=== PATIENT | female | born 1990 | race Caucasian/White ===

== ENCOUNTER 2019-08-27 16:37 | Inpatient (IN) | payer MEDICAID, MEDICARE ==
[~2019-08-27] VITALS: Ht 157.5 cm; Wt 100.7 kg
[2019-08-27] MEDS ORDERED: LACTATED RINGERS 1,000 ML IV SCH (17:06)
[2019-08-27] MEDS ORDERED: CARBOPROST TROMETHAMINE 250 MCG/ML AMPUL IM PRN (17:15)
[2019-08-27 17:52] LABS: COLOR URINE YELLOW (YELLOW); KETONES URINE 2+ (NEGATIVE); LEUKOCYTE ESTERASE URINE NEGATIVE (NEGATIVE); NITRITE URINE NEGATIVE (NEGATIVE); OCCULT BLOOD URINE 1+ (NEGATIVE); PROTEIN URINE 3+ (NEGATIVE); SPECIFIC GRAVITY URINE 1.018 (1.005-1.030); UROBILINOGEN URINE 0.2 E.U./dL (0.2-1.0)
[2019-08-27] MEDS ORDERED: OXYTOCIN 10 UNITS/ML 1ML ONE (17:53)
[2019-08-27] MEDS ORDERED: CEFAZOLIN SODIUM 1000MG/VIAL ONE (17:54)
[2019-08-27] MEDS ORDERED: EPHEDRINE SULFATE 50MG/ML VIAL ONE (17:54)
[2019-08-27] MEDS ORDERED: ONDANSETRON HCL 4MG/2ML INJ ONE (17:54)
[2019-08-27] MEDS ORDERED: SUCCINYLCHOLINE CHLORIDE 200MG/10ML IV ONE (17:54)
[2019-08-27 17:55] LABS: CLARITY URINE SL HAZY (CLEAR)
[2019-08-27 17:56] LABS: BASOPHILS % 0.9 % (0.0-2.0); EOSINOPHILS % 0.6 % (0.0-5.0); HEMATOCRIT. 40.8 % (36.0-48.0); HEMOGLOBIN. 14.1 g/dL (12.0-16.0); LYMPHOCYTES % 25.8 % (20.0-50.0); MEAN CORPUSCULAR HEMOGLOBIN 33.7 pg (28.0-32.0); MEAN CORPUSCULAR VOLUME 97.5 fL (81.0-99.0); MEAN PLATELET VOLUME 10.4 fl (7.4-10.4); MONOCYTES % 7.5 % (2.0-8.0); NEUTROPHILS % 65.2 % (40.0-76.0); PLATELET 142 x1000/uL (130-400); RED BLOOD CELL COUNT 4.18 mill/uL (4.2-5.4); RED CELL DISTRIBUTION WIDTH 14.6 % (11.6-14.6)
[2019-08-27 18:01] LABS: *AMPHETAMINES SCREEN URINE NEGATIVE (NEGATIVE); *BARBITURATES SCREEN URINE NEGATIVE (NEGATIVE); *BENZODIAZEPINES SCREEN URINE NEGATIVE (NEGATIVE); *COCAINE SCREEN URINE NEGATIVE (NEGATIVE)
[2019-08-27 18:02] LABS: CHLORIDE 110 mEq/L (98-107)
[2019-08-27 18:02] LABS: CANNABINOID URINE SCREEN NEGATIVE (NEGATIVE); METHADONE URINE SCREEN NEGATIVE (NEGATIVE); OPIATES URINE SCREEN NEGATIVE (NEGATIVE); PHENCYCLIDINE URINE SCREEN NEGATIVE (NEGATIVE)
[2019-08-27 18:06] LABS: PARTIAL THROMBOPLASTIN TIME 29.6 sec (23.4-31.0); PROTHROMBIN TIME 10.4 sec (9.6-11.0)
[2019-08-27 18:31] LABS: HEPATITIS B SURFACE ANTIGEN NEGATIVE
[2019-08-27] MEDS ORDERED: INFLUENZA VIRUS VACCINE(AFLURIA) 0.5ML SYR IM ONE (20:45)
[2019-08-27] MEDS ORDERED: MORPHINE SULFATE/PF 1MG/ML 10ML AMP ONE (20:49)
[2019-08-27] MEDS ORDERED: BISACODYL 10MG SUPP PR PRN (22:30)
[2019-08-27] MEDS ORDERED: DIPHENHYDRAMINE 25MG CAPSULE PO PRN (22:30)
[2019-08-27] MEDS ORDERED: LANOLIN OINT 7GM TUBE TOP PRN (22:30)
[2019-08-27] MEDS ORDERED: ONDANSETRON HCL 4MG/2ML INJ IV PRN (22:30)
[2019-08-27] MEDS ORDERED: IBUPROFEN 400MG TABLET PO PRN (22:30)
[2019-08-27] MEDS ORDERED: HYDROMORPHONE HCL/PF 2MG/ML CPJ IM PRN (22:30)
[2019-08-28] VITALS (9 sets, daily range): BP systolic 131–188; BP diastolic 77–94
[2019-08-28] MEDS ORDERED: TETANUS, DIPHTHERIA, PERTUSSIS VAC/PF 0.5ML (>7YR OLD) IM ONE (06:00)
[2019-08-28 06:58] LABS: BASOPHILS % 0.6 % (0.0-2.0); EOSINOPHILS % 0.4 % (0.0-5.0); HEMATOCRIT. 32.7 % (36.0-48.0); HEMOGLOBIN. 11.5 g/dL (12.0-16.0); LYMPHOCYTES % 19.2 % (20.0-50.0); MEAN CORPUSCULAR HEMOGLOBIN 33.8 pg (28.0-32.0); MEAN CORPUSCULAR VOLUME 96.5 fL (81.0-99.0); MEAN PLATELET VOLUME 10.3 fl (7.4-10.4); MONOCYTES % 7.6 % (2.0-8.0); NEUTROPHILS % 72.2 % (40.0-76.0); PLATELET 112 x1000/uL (130-400); RED BLOOD CELL COUNT 3.39 mill/uL (4.2-5.4); RED CELL DISTRIBUTION WIDTH 14.5 % (11.6-14.6)
[2019-08-28] MEDS: HYDROCODONE/ACETAMINOPHEN 5/325MG TABLET PO PRN ×2 (08:47→18:20)
[2019-08-28] MEDS: IBUPROFEN 800MG TABLET PO PRN (13:08)
[2019-08-28] MEDS: FERROUS SULFATE 325MG TABLET PO SCH (18:18)
[2019-08-28] MEDS: MAGNESIUM/ALUMINUM HYDROXIDE/SIMETHICONE 30ML UDC PO SCH (21:52)
[2019-08-28] MEDS: DOCUSATE SODIUM 100MG CAPSULE PO SCH (21:55)
[2019-08-28] MEDS: SIMETHICONE 80MG TABLET CHEW PO SCH (21:56)
[2019-08-29] VITALS: BP 162/93
[2019-08-29] MEDS: IBUPROFEN 800MG TABLET PO PRN ×3 (00:59→20:17)
[2019-08-29 02:00] VITALS: BP 118/76
[2019-08-29 04:00] VITALS: BP 138/87
[2019-08-29] MEDS: HYDROCODONE/ACETAMINOPHEN 5/325MG TABLET PO PRN (05:28)
[2019-08-29] MEDS: FERROUS SULFATE 325MG TABLET PO SCH ×3 (07:30→17:22)
[2019-08-29] MEDS: MAGNESIUM/ALUMINUM HYDROXIDE/SIMETHICONE 30ML UDC PO SCH ×4 (07:30→20:19)
[2019-08-29] MEDS: SIMETHICONE 80MG TABLET CHEW PO SCH ×4 (08:00→21:44)
[2019-08-29 09:04] VITALS: BP 133/81
[2019-08-29 16:00] VITALS: BP 137/78
[2019-08-29] MEDS: DOCUSATE SODIUM 100MG CAPSULE PO SCH (20:18)
[2019-08-29 22:00] VITALS: BP 134/84
[2019-08-30] MEDS ORDERED: IBUP-2030 MT (07:15)
[2019-08-30] MEDS: IBUPROFEN 800MG TABLET PO PRN (08:27)
[2019-08-30] MEDS: FERROUS SULFATE 325MG TABLET PO SCH (08:27)
[2019-08-30] MEDS: SIMETHICONE 80MG TABLET CHEW PO SCH (08:27)
[2019-08-30] MEDS: MAGNESIUM/ALUMINUM HYDROXIDE/SIMETHICONE 30ML UDC PO SCH (08:27)
== END 2019-08-30 13:00 | disposition home or self-care (01) | DRG 540 ==
LOC: OBSVTOIN 16:37 → 8 EST LDRP 16:37 → 8EST 08-28 00:31
PROVIDERS: ADMIT Specialist; ATTEND Specialist
PROC: 10D00Z1 Extraction of Products of Conception, Low, Open Approach (ICD-10-PCS; principal; 2019-08-27)
DX: O34.211 Maternal care for low transverse scar from previous cesarean delivery (principal); Z37.2 Twins, both liveborn; O98.52 Other viral diseases complicating childbirth; O14.94 Unspecified pre-eclampsia, complicating childbirth; O32.1XX1 Maternal care for breech presentation, fetus 1; O30.003 Twin pregnancy, unspecified number of placenta and unspecified number of amniotic sacs, third trimester; O13.4 Gestational [pregnancy-induced] hypertension without significant proteinuria, complicating childbirth; Z3A.35 35 weeks gestation of pregnancy
CPT/HCPCS: 36415; 80053; 80305; 81003; 84550; 85025; 85384; 86592; 86703; 86762; 86850; 86900; 86920; 87340; 88307; 90715; G0378; J0330; J0690; J2274; J2405; J3490